=== PATIENT | female | born 1975 | race Hispanic/Latino ===

== ENCOUNTER 2016-08-22 17:09 | Emergency (ER) | payer OTHER ==
[2016-08-22] MEDS ORDERED: LIDOCAINE 2% MDV 20 ML VIAL As Ordered ONE (17:32)
[2016-08-22] MEDS ORDERED: ADACEL/BOOSTRIX VACCINE (DIPHTH/PERTUSS/ACELL/TETANUS)0.5ML SYR (90715) As Ordered ONE (17:33)
--- NOTE | 2016-08-22 18:49 | EDDOCDS ---
Physician Documentation [facility] Name: Geetha Garces Age: 40 yrs Sex: Female : 1975 Arrival Date: 08/22/2016 Time: 17:09 Bed I6 / 28 Private MD: Lior Sánchez MD Disposition: 08/22/16 18:35 Discharged to Home/Self Care. Impression: Laceration without foreign body of left hand. - Condition is Stable. - Discharge Instructions: Sutured Wound Care. - Prescriptions for Augmentin 875- 125 mg Oral Tablet - take 1 tablet by ORAL route every 12 hours for 5 days; 10 tablet. - Medication Reconciliation, Local Pharmacy Hours, Work Release Form - 3 day form. - Follow up: Emergency Department; When: As needed; Reason: Worsening of conditions. Follow up: Lior Sánchez; When: Call to arrange an appointment; Reason: Staple/Suture removal, Recheck today's complaints, Continuance of care. - Problem is new. - Symptoms have improved. - Notes: 1 suture was placed in your hand today. Follow up in 10 days for suture removal. Return sooner for any signs of infection. Historical: - Allergies: no known allergies; - Home Meds: 1. none - PMHx: none; - PSHx: none; - Social history: Smoking status: Patient uses tobacco products, current some day smoker. No barriers to communication noted, The patient speaks fluent Frisian, Speaks appropriately for age. - Family history: Not pertinent. - : The pt / caregiver states he / she is not on anticoagulants. Home medication list is obtained from the patient. - Exposure Risk Screening:: None identified. - Tetanus status: unknown. 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 7 in. (170.18 cm) (R); Pain 2/10; 17:11 Body Mass Index 25.84 (74.84 kg, 170.18 cm) gr2 MDM: 17:30 Lidocaine 20 mg/mL (2 %) 10 ml Infiltration once; to bedside ordered. cc10 17:30 Wound Care ordered. cc10 17:30 Tetanus- Diptheria-Acellular Pertussis 0.5 ml IM once; Routine booster 10-64yrs, >64 cc10 with child contact Lynn Omnicell ordered. 17:31 Financial registration complete. zo 17:31 [facility] Payment Agreement was scanned into [employer] and attached to record. zo 18:34 Misc. Nursing Order ordered. cc10 Administered Medications: 17:35 Drug: Tetanus- Diptheria-Acellular Pertussis 0.5 ml [diphth,pertussis(acel),tetanus 2.5 jc4 Lf unit-8 mcg-5 Lf/0.5mL IM syringe (0.5 mL)] {Implant Polisher: [employer]. Exp: 09/29/2018. Lot #: [id number]. } Route: IM; Site: right deltoid; 17:36 Drug: Lidocaine 10 ml [lidocaine 20 mg/mL (2 %) injection solution (10 mL)] {Note: jc4 Given to PA for use.} Route: Infiltration; Signatures: Dominic Hester,RN RN Mark Becker EmilyRN RN Basim Fish PA-C PA-C cc10 Liliane Grimaldo RN jc4 The chart was reviewed and I authenticate all verbal orders and agree with the evaluation and treatment provided.Attachments: 17:31 [facility] Payment Agreement zo [facility]
--- NOTE | 2016-08-22 18:49 | EDDOCDS ---
Nurse's Notes [facility] Name: Geetha Garces Age: 40 yrs Sex: Female : 1975 Arrival Date: 08/22/2016 Time: 17:09 Bed I6 / 28 Private MD: Lior Sánchez MD Diagnosis: Laceration without foreign body of left hand Presentation: 08/22 17:14 Presenting complaint: Patient states: laceration to web between left thumb and left ead index finger. cut by broken lightbulb approx 30 minutes prior to arrival. band aid in place on arrival, bleeding controlled. Adult Sepsis Screening: The patient does not have new or worsening altered mentation. Patient's respiratory rate is less than 22. Systolic blood pressure is greater than 100. Patient has a qSOFA score of 0- Negative Sepsis Screen. Suicide/Homicide risk assessment- the patient denies having any suicidal and/or homicidal ideations and does not present with any other emotional, behavioral or mental health complaints. Status: Patient is not a information services assistant or dependent. Transition of care: patient was not received from another setting of care. 17:14 Acuity: HUONG Level 4 ead 17:14 Method Of Arrival: Walkin/Carried/Asstd ead Triage Assessment: 17:16 General: Appears in no apparent distress, comfortable, Behavior is appropriate for age, ead cooperative. Pain: Location: left hand Pain currently is 5 out of 10 on a pain scale. Derm: Skin is pink, warm & dry. laceration to web of left thumb and left index finger. Musculoskeletal: Range of motion intact in all extremities. 17:17 Pt Declines HIV testing. 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 none - PMHx: none; - PSHx: none; - Social history: Smoking status: Patient uses tobacco products, current some day smoker. No barriers to communication noted, The patient speaks fluent Italian, Speaks appropriately for age. - Family history: Not pertinent. - : The pt / caregiver states he / she is not on anticoagulants. Home medication list is obtained from the patient. - Exposure Risk Screening:: None identified. - Tetanus status: unknown. Screenin:46 Screening information is obtained from the patient. Fall risk: No risks identified. jmk Assistance ADL's: requires no assistance with activities of daily living. Abuse/DV Screen: The patient / caregiver reports he/she is: not in a situation that causes fear, pain or injury. Nutritional screening: No deficits noted. Advance Directives: Currently, there is no health care proxy. There is no active DNR order. There is no living will. There is no Power of Gauger Delivery. Advance directive information has not previously been placed in an [facility] medical record. home support is adequate. Assessment: 17:45 General: Appears in no apparent distress, linear lac noted to web space of left thumb. jmk without active bleeding or visible FB. ROM adequate. soak initiated.. 18:46 General: Appears suturing completed and tolerated well. DSD in place. [facility] Vital Signs: 17:11 BP 144 / 79; Pulse 70; Resp 18 S; Temp 96.5(O); Pulse Ox 100% on R/A; Weight 74.84 kg gr2 (R); Height 5 ft. 7 in. (170.18 cm) (R); Pain 2/10; 17:11 Body Mass Index 25.84 (74.84 kg, 170.18 cm) gr2 Vitals: 17:11 Log In Time: August 22, 2016 at 17:11. gr2 ED Course: 17:10 Patient visited by Yancy Blount. gr2 17:10 Lior Sánchez is Private Physician. gr2 17:10 Patient moved to Waiting gr2 17:13 Patient visited by Yancy Blount. gr2 17:13 Patient moved to Pre RCE gr2 17:15 Triage Initiated ead 17:17 [facility]jeda [facility] cc10 17:17 Too Sutherland DO is Attending Physician. cc10 17:23 Patient moved to Triage 2 rs3 17:24 Patient name changed from Geetha\S\\S\Freeman\S\ to Geetha\S\T\S\Garces. EDMS 17:25 Patient visited by Basim Tejeda PA-C. cc10 17:25 Patient visited by Basim Tejeda PA-C. cc10 17:31 [facility] Payment Agreement was scanned into [email or web address] and attached to record. zo 17:36 Angel, Vee, RN is Primary Nurse. jc4 17:36 Patient moved to jc4 17:46 The patient / caregiver is instructed regarding the plan of care and ED course. k 18:35 Lior Sánchez is Referral Physician. cc10 18:46 No IV's were initiated during this patient's visit. No procedures done that require jmk assistance. Administered Medications: 17:35 Drug: Tetanus- Diptheria-Acellular Pertussis 0.5 ml [diphth,pertussis(acel),tetanus 2.5 jc4 Lf unit-8 mcg-5 Lf/0.5mL IM syringe (0.5 mL)] {Furnace Stock Inspector: [employer]Note. Exp: 09/29/2018. Lot #: [id number]. } Route: IM; Site: right deltoid; 17:36 Drug: Lidocaine 10 ml [lidocaine 20 mg/mL (2 %) injection solution (10 mL)] {Note: jc4 Given to PA for use.} Route: Infiltration; Order Results: There are currently no results for this order. Outcome: 18:35 Discharge ordered by Provider. cc10 18:46 Discharge Assessment: Patient awake, alert and oriented x 3. No cognitive and/or jmk functional deficits noted. Patient verbalized understanding of disposition instructions. patient administered narcotics - no. The following High Risk Discharge criteria are identified: None. Discharged to home ambulatory. Condition: good. Discharge instructions given to patient, Instructed on discharge instructions, follow up and referral plans. medication usage, wound care, Demonstrated understanding of instructions, medications, Pt was receptive of discharge instructions/ teaching. No special radiology studies were completed. Property :Personal belongings accompany Pt. 18:47 Patient left the ED. [facility] Signatures: Dispatcher Med[employer] EDMS Dominic HesterRN RN Mark Becker RosemaryRN RN rs3 Liliane Grimaldo RN RN jc4 Yancy Blount Emily,RN RN Basim Fish, PA-C PA-C cc10 MTDD
--- NOTE | 2016-08-24 19:48 | EDDOCDS ---
Nurse's Notes [facility] Name: Geetha Garces Age: 40 yrs Sex: Female : 1975 Arrival Date: 08/22/2016 Time: 17:09 Bed I6 / 28 Private MD: Lior Sánchez MD Diagnosis: Laceration without foreign body of left hand Presentation: 08/22 17:14 Presenting complaint: Patient states: laceration to web between left thumb and left ead index finger. cut by broken lightbulb approx 30 minutes prior to arrival. band aid in place on arrival, bleeding controlled. Adult Sepsis Screening: The patient does not have new or worsening altered mentation. Patient's respiratory rate is less than 22. Systolic blood pressure is greater than 100. Patient has a qSOFA score of 0- Negative Sepsis Screen. Suicide/Homicide risk assessment- the patient denies having any suicidal and/or homicidal ideations and does not present with any other emotional, behavioral or mental health complaints. Status: Patient is not a director of community services or dependent. Transition of care: patient was not received from another setting of care. 17:14 Acuity: HUONG Level 4 ead 17:14 Method Of Arrival: Walkin/Carried/Asstd ead Triage Assessment: 17:16 General: Appears in no apparent distress, comfortable, Behavior is appropriate for age, ead cooperative. Pain: Location: left hand Pain currently is 5 out of 10 on a pain scale. Derm: Skin is pink, warm & dry. laceration to web of left thumb and left index finger. Musculoskeletal: Range of motion intact in all extremities. 17:17 Pt Declines HIV testing. 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 none - PMHx: none; - PSHx: none; - Social history: Smoking status: Patient uses tobacco products, current some day smoker. No barriers to communication noted, The patient speaks fluent Chinese, Speaks appropriately for age. - Family history: Not pertinent. - : The pt / caregiver states he / she is not on anticoagulants. Home medication list is obtained from the patient. - Exposure Risk Screening:: None identified. - Tetanus status: unknown. Screenin:46 Screening information is obtained from the patient. Fall risk: No risks identified. jmk Assistance ADL's: requires no assistance with activities of daily living. Abuse/DV Screen: The patient / caregiver reports he/she is: not in a situation that causes fear, pain or injury. Nutritional screening: No deficits noted. Advance Directives: Currently, there is no health care proxy. There is no active DNR order. There is no living will. There is no Power of Pill Coater. Advance directive information has not previously been placed in an [facility] medical record. home support is adequate. Assessment: 17:45 General: Appears in no apparent distress, linear lac noted to web space of left thumb. jmk without active bleeding or visible FB. ROM adequate. soak initiated.. 18:46 General: Appears suturing completed and tolerated well. DSD in place. [facility] Vital Signs: 17:11 BP 144 / 79; Pulse 70; Resp 18 S; Temp 96.5(O); Pulse Ox 100% on R/A; Weight 74.84 kg gr2 (R); Height 5 ft. 7 in. (170.18 cm) (R); Pain 2/10; 17:11 Body Mass Index 25.84 (74.84 kg, 170.18 cm) gr2 Vitals: 17:11 Log In Time: August 22, 2016 at 17:11. gr2 ED Course: 17:10 Patient visited by Yancy Blount. gr2 17:10 Lior Sánchze is Private Physician. gr2 17:10 Patient moved to Waiting gr2 17:13 Patient visited by Yancy Blount. gr2 17:13 Patient moved to Pre RCE gr2 17:15 Triage Initiated ead 17:17 [facility] Tejeda [facility]-C [facility] cc10 17:17 Too Sutherland DO is Attending Physician. cc10 17:23 Patient moved to Triage 2 rs3 17:24 Patient name changed from Geetha\S\\S\Freeman\S\ to Geetha\S\T\S\Garces. EDMS 17:25 Patient visited by Basim Tejeda PA-C. cc10 17:25 Patient visited by Basim Tejeda PA-C. cc10 17:31 [facility] Payment Agreement was scanned into [email or web address] and attached to record. zo 17:36 Angel, Vee, RN is Primary Nurse. jc4 17:36 Patient moved to jc4 17:46 The patient / caregiver is instructed regarding the plan of care and ED course. jmk 18:35 Lior Sánchez is Referral Physician. cc10 18:46 No IV's were initiated during this patient's visit. No procedures done that require jmk assistance. 08/23 01:41 T-Sheet-- Draft Copy was scanned into [email or web address] and attached to record. hs2 Administered Medications: 08/22 17:35 Drug: Tetanus- Diptheria-Acellular Pertussis 0.5 ml [diphth,pertussis(acel),tetanus 2.5 jc4 Lf unit-8 mcg-5 Lf/0.5mL IM syringe (0.5 mL)] {Dental Assistant Medical Assistant: [employer]. Exp: 09/29/2018. Lot #: [id number]. } Route: IM; Site: right deltoid; 17:36 Drug: Lidocaine 10 ml [lidocaine 20 mg/mL (2 %) injection solution (10 mL)] {Note: jc4 Given to PA for use.} Route: Infiltration; Order Results: There are currently no results for this order. Outcome: 18:35 Discharge ordered by Provider. cc10 18:46 Discharge Assessment: Patient awake, alert and oriented x 3. No cognitive and/or jmk functional deficits noted. Patient verbalized understanding of disposition instructions. patient administered narcotics - no. The following High Risk Discharge criteria are identified: None. Discharged to home ambulatory. Condition: good. Discharge instructions given to patient, Instructed on discharge instructions, follow up and referral plans. medication usage, wound care, Demonstrated understanding of instructions, medications, Pt was receptive of discharge instructions/ teaching. No special radiology studies were completed. Property :Personal belongings accompany Pt. 18:47 Patient left the ED. k Signatures: Dispatcher [employer] EDMS Dominic Hester,RN RN Mark Becker RosemaryRN RN rs3 Liliane Grimaldo RN RN jc4 Yancy Blount gr2 Leonela MccarthyRN RN Basim Fish, PA-C PA-C cc10 Kassy Ashley, Reg Reg hs2 Chart Complete MTDD
--- NOTE | 2016-08-24 19:48 | EDDOCDS ---
Physician Documentation [facility] Name: Geetha Garces Age: 40 yrs Sex: Female : 1975 Arrival Date: 08/22/2016 Time: 17:09 Bed I6 / 28 Private MD: Lior Sánchez MD Disposition: 08/22/16 18:35 Discharged to Home/Self Care. Impression: Laceration without foreign body of left hand. - Condition is Stable. - Discharge Instructions: Sutured Wound Care. - Prescriptions for Augmentin 875- 125 mg Oral Tablet - take 1 tablet by ORAL route every 12 hours for 5 days; 10 tablet. - Medication Reconciliation, Local Pharmacy Hours, Work Release Form - 3 day form. - Follow up: Emergency Department; When: As needed; Reason: Worsening of conditions. Follow up: Lior Sánchez; When: Call to arrange an appointment; Reason: Staple/Suture removal, Recheck today's complaints, Continuance of care. - Problem is new. - Symptoms have improved. - Notes: 1 suture was placed in your hand today. Follow up in 10 days for suture removal. Return sooner for any signs of infection. Historical: - Allergies: no known allergies; - Home Meds: 1. none - PMHx: none; - PSHx: none; - Social history: Smoking status: Patient uses tobacco products, current some day smoker. No barriers to communication noted, The patient speaks fluent Georgian, Speaks appropriately for age. - Family history: Not pertinent. - : The pt / caregiver states he / she is not on anticoagulants. Home medication list is obtained from the patient. - Exposure Risk Screening:: None identified. - Tetanus status: unknown. 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 7 in. (170.18 cm) (R); Pain 2/10; 17:11 Body Mass Index 25.84 (74.84 kg, 170.18 cm) gr2 MDM: 17:30 Lidocaine 20 mg/mL (2 %) 10 ml Infiltration once; to bedside ordered. cc10 17:30 Wound Care ordered. cc10 17:30 Tetanus- Diptheria-Acellular Pertussis 0.5 ml IM once; Routine booster 10-64yrs, >64 cc10 with child contact Forrest Omnicell ordered. 17:31 Financial registration complete. zo 17:31 [facility] Payment Agreement was scanned into Ell[employer] and attached to record. zo 18:34 Misc. Nursing Order ordered. cc10 08/23 01:41 T-Sheet-- Draft Copy was scanned into Elliptic and attached to record. hs2 Administered Medications: 08/22 17:35 Drug: Tetanus- Diptheria-Acellular Pertussis 0.5 ml [diphth,pertussis(acel),tetanus 2.5 jc4 Lf unit-8 mcg-5 Lf/0.5mL IM syringe (0.5 mL)] {Draw Hand: Inspiris. Exp: 09/29/2018. Lot #: [id number]. } Route: IM; Site: right deltoid; 17:36 Drug: Lidocaine 10 ml [lidocaine 20 mg/mL (2 %) injection solution (10 mL)] {Note: jc4 Given to PA for use.} Route: Infiltration; Signatures: Dominic Hester,RN RN Mark Becker Emily, RN RN Basim Fish, PA-C PA-C cc10 Kassy Ashley, Reg Reg hs2 Liliane Grimaldo RN jc4 The chart was reviewed and I authenticate all verbal orders and agree with the evaluation and treatment provided.Attachments: 17:31 [facility] Payment Agreement zo 08/23 01:41 T-Sheet-- Draft Copy hs2 Chart Complete MTDD
--- NOTE | 2016-08-24 19:48 | EDDOCDS ---
Physician Documentation [facility] Name: Geetha Garces Age: 40 yrs Sex: Female : 1975 Arrival Date: 08/22/2016 Time: 17:09 Bed I6 / 28 Private MD: Lior Sánchez MD Disposition: 08/22/16 18:35 Discharged to Home/Self Care. Impression: Laceration without foreign body of left hand. - Condition is Stable. - Discharge Instructions: Sutured Wound Care. - Prescriptions for Augmentin 875- 125 mg Oral Tablet - take 1 tablet by ORAL route every 12 hours for 5 days; 10 tablet. - Medication Reconciliation, Local Pharmacy Hours, Work Release Form - 3 day form. - Follow up: Emergency Department; When: As needed; Reason: Worsening of conditions. Follow up: Lior Sánchez; When: Call to arrange an appointment; Reason: Staple/Suture removal, Recheck today's complaints, Continuance of care. - Problem is new. - Symptoms have improved. - Notes: 1 suture was placed in your hand today. Follow up in 10 days for suture removal. Return sooner for any signs of infection. Historical: - Allergies: no known allergies; - Home Meds: 1. none - PMHx: none; - PSHx: none; - Social history: Smoking status: Patient uses tobacco products, current some day smoker. No barriers to communication noted, The patient speaks fluent Serbian, Speaks appropriately for age. - Family history: Not pertinent. - : The pt / caregiver states he / she is not on anticoagulants. Home medication list is obtained from the patient. - Exposure Risk Screening:: None identified. - Tetanus status: unknown. 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 7 in. (170.18 cm) (R); Pain 2/10; 17:11 Body Mass Index 25.84 (74.84 kg, 170.18 cm) gr2 MDM: 17:30 Lidocaine 20 mg/mL (2 %) 10 ml Infiltration once; to bedside ordered. cc10 17:30 Wound Care ordered. cc10 17:30 Tetanus- Diptheria-Acellular Pertussis 0.5 ml IM once; Routine booster 10-64yrs, >64 cc10 with child contact Forrest Omnicell ordered. 17:31 Financial registration complete. zo 17:31 [facility] Payment Agreement was scanned into [employer] and attached to record. zo 18:34 Misc. Nursing Order ordered. cc10 08/23 01:41 T-Sheet-- Draft Copy was scanned into [employer] and attached to record. hs2 Administered Medications: 08/22 17:35 Drug: Tetanus- Diptheria-Acellular Pertussis 0.5 ml [diphth,pertussis(acel),tetanus 2.5 jc4 Lf unit-8 mcg-5 Lf/0.5mL IM syringe (0.5 mL)] {Managed Care Director: [employer]. Exp: 09/29/2018. Lot #: [id number]. } Route: IM; Site: right deltoid; 17:36 Drug: Lidocaine 10 ml [lidocaine 20 mg/mL (2 %) injection solution (10 mL)] {Note: jc4 Given to PA for use.} Route: Infiltration; Signatures: Dominic Hester,RN RN Mark Becker Emily, RN RN Basim Fish, PA-C PA-C cc10 Kassy Ashley, Reg Reg hs2 Liliane Grimaldo RN jc4 The chart was reviewed and I authenticate all verbal orders and agree with the evaluation and treatment provided.Attachments: 17:31 [facility] Payment Agreement zo 08/23 01:41 T-Sheet-- Draft Copy hs2 Chart Complete MTDD
== END 2016-08-22 18:47 | disposition home or self-care (01) ==
LOC: M ED 17:09
DX: S61.412A Laceration without foreign body of left hand, initial encounter (principal); W25.XXXA Contact with sharp glass, initial encounter; Y92.019 Unspecified place in single-family (private) house as the place of occurrence of the external cause; Y93.89 Activity, other specified; Y99.8 Other external cause status; Z72.0 Tobacco use